=== PATIENT | male | born 1960 | race Caucasian/White ===

== ENCOUNTER 2018-03-12 12:07 | Emergency (ER) | payer MEDICAID, OTHER ==
[~2018-03-12] VITALS: Ht 188 cm; Wt 108.9 kg
[~2018-03-12 12:07] MED LIST: AZITHROMYCIN250 MG PO; BACTRIM-DS1 EA ORAL; KEFLEX500 MG ORAL; KENALOG 0.1% CR15 GM APPLIC; NKM; PHENERGAN/CODE120 ML PO
[2018-03-12] MEDS ORDERED: PREDNISONE2.5 MG ORAL (12:20)
[2018-03-12] MEDS ORDERED: FOLIC ACID1 MG ORAL (12:20)
--- NOTE | 2018-03-12 12:49 | Emergency Room Report ---
History of Present Illness General Chief Complaint: Skin Rash/Abscess Source: Patient Present Illness HPI 57-year-old male presents to the emergency department complaining of itchy rash on the bilateral lower extremities from the knee down 5 days. Patient states that his also has similar symptoms. He denies pain. Patient denies fevers or chills. Pt. denies fevers, chills or swollen tender lymph nodes. Denies lesions/rashes elsewhere on the body. Denies new medications or body washes or creams. Denies swelling of the lips, tongue , throat or airway. Denies wheezing , or shortness of breath. Denies recent travel, recent illness or ill contacts. denies blisters, oral lesions, or sloughing of the skin Allergies: Coded Allergies: No Known Allergies (Unverified , 09/05/12) Patient History Past Medical History: see triage record, other - BPH, rheumatoid arthritis Past Surgical History: none Pertinent Family History: none Immunizations: UTD Reviewed Nursing Documentation: PMH: Agreed; PSxH: Agreed Nursing Documentation-PMH Past Medical History: No Stated History Review of Systems All Other Systems: negative except mentioned in HPI Physical Exam Vital Signs Date Time Temp Pulse Resp B/P (MAP) Pulse Ox O2 Delivery O2 Flow Rate FiO2 03/12/18 12:10 98.4 92 18 115/76 96 Room Air 98.4 Sp02 EP Interpretation: reviewed, normal General Appearance: no apparent distress, alert, GCS 15, non-toxic Head: normocephalic, atraumatic Eyes: bilateral eye normal inspection, bilateral eye PERRL ENT: hearing grossly normal, normal voice, other - no swelling of the lips or tongue Neck: full range of motion Respiratory: lungs clear, normal breath sounds, speaking full sentences Cardiovascular #1: regular rate, rhythm, no edema, normal capillary refill Musculoskeletal: back normal, gait/station normal, normal range of motion, non- tender Neurologic: alert, oriented x3, responsive, motor strength/tone normal, sensory intact, speech normal, grossly normal Psychiatric: judgement/insight normal Skin: normal color, warm/dry, well hydrated, rash - multiple indurated papules , in a scattered distribution with wheel reaction surrounding, no increased temperature to palpation, no crusting, no blisters or vessicles. Medical Decision Making PA Attestation Dr. Kramer is my supervising Physician whom patient management has been discussed with. Diagnostic Impression: Primary Impression: Insect bites Qualified Codes: W57.XXXA - Bitten or stung by nonvenomous insect and other nonvenomous arthropods, initial encounter ER Course 57-year-old male presents to the emergency department complaining of itchy rash on the bilateral lower extremities from the knee down 5 days. Patient states that his also has similar symptoms. He denies pain. Patient denies fevers or chills. Pt. denies fevers, chills or swollen tender lymph nodes. Denies lesions/rashes elsewhere on the body. Denies new medications or body washes or creams. Denies swelling of the lips, tongue , throat or airway. Denies wheezing , or shortness of breath. Denies recent travel, recent illness or ill contacts. denies blisters, oral lesions, or sloughing of the skin Ddx considered but are not limited to cellulitis, scabies, insect bites, tic bites, spider bites, contact dermatitis, Drug reaction, allergic reaction, fungal infection, lice. Vital signs: are WNL, pt. is afebrile H&PE are most consistent with Multiple insect bites of the lower extremity no evidence of infection no evidence of impending airway compromise or anaphylaxis. -multiple indurated papules, in a scattered distribution with wheel reaction surrounding, no increased temperature to palpation, no crusting, no blisters or vessicles ORDERS: none required at this time, the diagnosis is clinical ED INTERVENTIONS: None required at this time. DISCHARGE: At this time pt. is stable for d/c to home. Will provide printed patient care instructions, and any necessary prescriptions. Care plan and follow up instructions have been discussed with the patient prior to discharge. Last Vital Signs Date Time Temp Pulse Resp B/P (MAP) Pulse Ox O2 Delivery O2 Flow Rate FiO2 03/12/18 12:10 98.4 92 18 115/76 96 Room Air 98.4 Disposition: HOME, SELF-CARE Condition: Stable Patient Instructions: Insect Bite, [id number] Additional Instructions: Take medications as directed. Follow up with a Primary Care Provider in 3-5 days, even if your symptoms have resolved. --Please review list of primary care clinics, if you do not already have a primary care provider Return sooner to ED if new symptoms occur, or current symptoms become worse. Do not drink alcohol, drive, or operate heavy machinery while taking Hydroxyzine as this may cause drowsiness. - Please note that this Emergency Department Report was dictated using [employer] technology software, occasionally this can lead to erroneous entry secondary to interpretation by the dictation equipment. Stephanie Staples Mar 12, 2018 12:49
[2018-03-12] MEDS ORDERED: ATARAX25 MG ORAL (12:55)
[2018-03-12] MEDS ORDERED: HYDROCORTISONE30 G2 TP (12:55)
[2018-03-12 13:06] VITALS: BP 115/76
== END 2018-03-12 13:06 | disposition home or self-care (01) ==
LOC: EMR 12:40
DX: S80.862A Insect bite (nonvenomous), left lower leg, initial encounter (principal); S80.861A Insect bite (nonvenomous), right lower leg, initial encounter; W57.XXXA Bitten or stung by nonvenomous insect and other nonvenomous arthropods, initial encounter; Y92.9 Unspecified place or not applicable; R21 Rash and other nonspecific skin eruption
CPT/HCPCS: 99282